=== PATIENT | male | born 1970 | race Caucasian/White ===

== ENCOUNTER 2017-12-21 10:57 | Day surgery (SDC) | payer OTHER ==
[2017-12-15 12:02] VITALS: BMI 30.3
[2017-12-21] MEDS ORDERED: MIDAZOLAM HCL 2 MG/2 ML SINGLE DOSE VIAL ONE ×2 (11:57→13:07)
[2017-12-21] MEDS ORDERED: DEXAMETHASONE SOD PHOSPHATE/PF 10 MG/ML SDV ONE (11:57)
[2017-12-21] MEDS ORDERED: BUPIVACAINE HCL/PF (5 MG/ML) 30 ML VIAL IJ ONE (11:57)
[2017-12-21] MEDS ORDERED: ceFAZolin SODIUM 1 GM VIAL ONE (12:54)
[2017-12-21] MEDS ORDERED: PROPOFOL 20 ML ONE (13:35)
[2017-12-21 16:46] VITALS: TEMP 98.5
[2017-12-21 16:51] VITALS: BP 148/89; PULSE 82
--- NOTE | 2017-12-21 20:04 | OP ---
DATE OF OPERATION: 12/21/2017 PREOPERATIVE DIAGNOSIS: Right shoulder internal derangement. POSTOPERATIVE DIAGNOSIS: 1. Right shoulder glenohumeral joint osteoarthritis. 2. Right shoulder acromioclavicular joint osteoarthritis. 3. Right shoulder diffuse labral tearing. 4. Right shoulder proximal biceps tendon tear. 5. Partial thickness rotator cuff tearing and subacromial bursitis and impingement. OPERATIVE PROCEDURE: 1. Right shoulder operative arthroscopy with extensive debridement of the glenohumeral joint including rotator cuff. 2. Right shoulder proximal biceps tenotomy. 3. Right shoulder arthroscopic distal clavicle excision. 4. Right shoulder arthroscopic subacromial decompression. SURGEON: Saul Murphy M.D. ATHLETIC TURF WORKER: Carmen Cho ANESTHESIA: Regional. COMPLICATIONS: None. ESTIMATED BLOOD LOSS: Minimal. INDICATION FOR PROCEDURE: The patient is a 47-year-old male with the above findings indicated for operative treatment. Risks, benefits, and alternatives were discussed with patient at length, and proper informed consent was obtained. PROCEDURE: After proper identification of the patient and correct operative site, patient was brought to the operating room and placed supine on the operating room table, all bony prominences well padded. Regional anesthesia was given. He was then placed in the beach chair position with all points of contact well padded. Right upper extremity was prepped and draped in the usual sterile fashion. Intravenous antibiotics given. Timeout procedure was performed. Standard arthroscopy was performed to posterior, lateral, and anterior portals. All portals were made with skin incision only and blunt dissection down to the joint capsule. Glenohumeral joint was observed first and found to have severe labral fraying and tearing with multiple loose pieces being stuck in the joint. There was also severe chondromalacia and arthrosis of the glenohumeral joint. No loose bodies were found. Extensive synovitis was noted, and extensive debridement performed in this joint including the labrum and the synovitis and the articular cartilage as needed. Subscapularis was found to be intact. Biceps tendon was found to have severe interstitial and anchor tearing and fraying, and it was decided to perform a biceps tenotomy. This was performed by sectioning the biceps just proximal to its exit at the shoulder and then shaving down the remainder of the stump of the biceps tendon down to healthy tissue. The rotator cuff was identified and found to have partial thickness less than 50% tearing on the articular surface. Subscapularis was intact. After extensive debridement of the glenohumeral joint and the biceps tenotomy, arthroscope was introduced in the subacromial space where a severe bursitis was noted, and this was debrided with a mechanical shaver. The patient had some deformity of the distal end of the clavicle due to possible prior fracture and the AC joint was very arthritic and very prominent and impinging on the rotator cuff. Therefore an arthroscopic distal clavicle excision was performed, and a subacromial decompression along with anterior inferior acromioplasty was performed. The rotator cuff was observed and found to be intact on the bursal surface other than some tendonosis and fraying. Wounds were irrigated and repaired with 5-0 nylon suture. Sterile dressings were applied. The splint was placed, the patient was reversed from anesthesia and brought to the recovery room in stable condition. Ian Kan, the engineering assistant, was integral throughout the procedure. Procedure could not have been performed without a skilled operative engineering assistant. Shakila [id number]
== END 2017-12-21 16:15 | disposition home or self-care (01) ==
LOC: FASU 10:57
PROVIDERS: ATTEND Orthopaedic Surgery Hand Surgery
PROC: 0RNJ4ZZ Release Right Shoulder Joint, Percutaneous Endoscopic Approach (ICD-10-PCS; 2017-12-21)
PROC: 0PB94ZZ Excision of Right Clavicle, Percutaneous Endoscopic Approach (ICD-10-PCS; 2017-12-21)
PROC: 0RBJ4ZZ Excision of Right Shoulder Joint, Percutaneous Endoscopic Approach (ICD-10-PCS; 2017-12-21)
PROC: 0RQJ4ZZ Repair Right Shoulder Joint, Percutaneous Endoscopic Approach (ICD-10-PCS; 2017-12-21)
PROC: 0LQ14ZZ Repair Right Shoulder Tendon, Percutaneous Endoscopic Approach (ICD-10-PCS; principal; 2017-12-21 13:11)
DX: M75.111 Incomplete rotator cuff tear or rupture of right shoulder, not specified as traumatic (principal); M19.011 Primary osteoarthritis, right shoulder; M24.111 Other articular cartilage disorders, right shoulder; M66.821 Spontaneous rupture of other tendons, right upper arm
CPT/HCPCS: 82962; 94760